=== PATIENT | female | born 1970 | race Two or more races ===

== ENCOUNTER 2024-11-05 07:29 | Inpatient (IN) | payer OTHER ==
[~2024-11-05] VITALS: Ht 162.6 cm; Wt 78.0 kg
[2024-11-05] MEDS ORDERED: TOPROL XL100 M1 PO (07:46)
[2024-11-05] MEDS ORDERED: CLOZAPINE100 MG PO (07:46)
[2024-11-05] MEDS ORDERED: PROTONIX40 MG PO (07:46)
[2024-11-05] MEDS ORDERED: CALCITRIOL0.5 MCG PO (07:47)
[2024-11-05] MEDS ORDERED: SYNTHROID137 MCG PO (07:47)
[2024-11-05] MEDS ORDERED: CALCIUM CITRAT250 MG PO (07:47)
[2024-11-05] MEDS ORDERED: 0.9 % SODIUM CHLORIDE 1,000 ML IV ONE (08:30)
[2024-11-05] MEDS ORDERED: PIPERACILLIN/TAZOBACTAM SODIUM 3.375 GM VIAL IV ONE ×2 (08:30→08:36)
[2024-11-05] MEDS ORDERED: MORPHINE SULFATE 2 MG/ML SYRINGE IV ONE (08:30)
[2024-11-05] MEDS ORDERED: PANTOPRAZOLE SODIUM 40 MG/VIAL VIAL IV ONE (08:30)
[2024-11-05 09:57] LABS: HEMATOCRIT 36.8 % (36.0-45.00); HEMOGLOBIN 12.9 g/dL (12.0-15.00); MEAN CELL VOLUME 85.1 fL (80.00-100.00); MEAN CORPUSCULAR HEMOGLOBIN 29.9 pg (27.00-32.0); MEAN CORPUSCULAR HGB CONC 35.1 g/dl (32.0-36.0); PLATELET COUNT 222 K/uL (150-450); RED BLOOD COUNT 4.32 M/uL (4.00-6.00); RED CELL DISTRIBUTION WIDTH 16.2 % (11.5-14.5)
[2024-11-05 10:15] LABS: INR 1.07; PARTIAL THROMBOPLASTIN TIME 20.6 SECONDS (22.0-34.0); PROTHROMBIN TIME 11.6 SECONDS (9.0-11.5)
[2024-11-05 10:20] LABS: ALBUMIN 3.8 gm/dL (3.4-5.0); BILIRUBIN TOTAL 0.67 mg/dL (0.3-1.2); CREATININE SERUM 2.22 mg/dL (0.55-1.02); GFR 23.11; GLOBULINA 5.2 G/DL (2.4-3.5); POTASSIUM 4.36 mEq/L (3.5-5.1)
[2024-11-05 10:30] LABS: CALCIUM 15.1 mg/dL (8.5-10.1)
[2024-11-05] MEDS ORDERED: 0.9 % SODIUM CHLORIDE 1,000 ML IV SCH (11:45)
[2024-11-05 12:56] LABS: PH,URINE 6.5 (5.0-8.0); URINE APPEARANCE Cloudy; URINE BILIRRUBIN Negative (NEGATIVE); URINE BLOOD Negative; URINE COLOR Yellow; URINE GLUCOSE Negative (NEGATIVE); URINE KETONE Trace (NEGATIVE); URINE LEUKOCYTE Moderate; URINE NITRATE Negative; URINE PROTEIN Trace (NEGATIVE); URINE UROBILINOGEN 0.2 E.U./dl
[2024-11-05 13:00] LABS: URINE BACTERIA 2081.9 uL (0.0-1933); URINE CAST 1.76 uL (0.0-1.40); URINE EPITHELIAL CELLS 55.8 uL (0.0-38.8); URINE RBC 8.5 uL (0.0-20.8); URINE WBC 130.9 uL (0.0-23.2)
[2024-11-05 14:44] LABS: ALBUMIN 3.4 gm/dL (3.4-5.0); BILIRUBIN TOTAL 0.5 mg/dL (0.3-1.2); CREATININE SERUM 2.23 mg/dL (0.55-1.02); GFR 22.99; GLOBULINA 4.2 G/DL (2.4-3.5); MAGNESIUM 2.1 mg/dL (1.8-2.4); PHOSPHOROUS 2.3 mg/dL (2.5-4.9); TOTAL PROTEIN 7.6 gm/dL (6.4-8.2)
[2024-11-05 14:46] VITALS: BP 150/90
[2024-11-05 14:50] LABS: CALCIUM 14.2 mg/dL (8.5-10.1); POTASSIUM 2.49 mEq/L (3.5-5.1)
[2024-11-05] MEDS ORDERED: POTASSIUM BICARBONATE/CIT AC 25 MEQ TABLET.EFF PO SCH (14:51)
[2024-11-05] MEDS ORDERED: POTASSIUM CHLORIDE IN WATER 40 MEQ/100 ML PIGGYBAG IV SCH (14:51)
[2024-11-05] MEDS ORDERED: POTASSIUM PHOS,M-BASIC-D-BASIC 15 MM in 0.9 % SODIUM CHLORIDE 250 ML IV NR (15:00)
[2024-11-05] MEDS ORDERED: CALCITONIN,SALMON,SYNTHETIC 400 UNIT/2ML VIAL IM SCH ×2 (15:15→17:00)
[2024-11-05] MEDS ORDERED: CEFTRIAXONE SODIUM 2,000 MG VIAL IV SCH (15:19)
[2024-11-05] MEDS ORDERED: METOPROLOL SUCCINATE 100 MG TAB.SR.24H PO SCH (15:20)
[2024-11-05] MEDS ORDERED: PANTOPRAZOLE SODIUM 40 MG TABLET.DR PO SCH (15:21)
[2024-11-05] MEDS ORDERED: POLYETHYLENE GLYCOL 3350 17 GM BLIST.PACK PO SCH (15:22)
[2024-11-05] MEDS ORDERED: ZOLEDRONIC ACID 4MG/5ML VIAL IV ONE (15:30)
[2024-11-05] MEDS ORDERED: POTASSIUM CHLORIDE IN WATER 40 MEQ/100 ML PIGGYBAG IV ONE (15:48)
[2024-11-05] MEDS ORDERED: CEFTRIAXONE SODIUM 2,000 MG VIAL ONE (15:49)
[2024-11-05] MEDS ORDERED: CLOZAPINE 100 MG PO SCH (17:00)
[2024-11-05 20:00] VITALS: BP 199/108; O2SAT 99
[2024-11-05] MEDS ORDERED: AMLODIPINE BESYLATE 5 MG TABLET PO ONE (21:00)
[2024-11-05] MEDS ORDERED: hydrALAZINE HCL 20 MG VIAL IV PRN (21:15)
[2024-11-05 22:00] VITALS: BP 156/96; O2SAT 99
[2024-11-05 22:07] LABS: ALBUMIN 3.4 gm/dL (3.4-5.0); BILIRUBIN TOTAL 0.35 mg/dL (0.3-1.2); CREATININE SERUM 2.03 mg/dL (0.55-1.02); GFR 25.62; GLOBULINA 4.2 G/DL (2.4-3.5); POTASSIUM 3.62 mEq/L (3.5-5.1); TOTAL PROTEIN 7.6 gm/dL (6.4-8.2)
[2024-11-05 22:21] LABS: CALCIUM 13.5 mg/dL (8.5-10.1)
[2024-11-06] VITALS (8 sets, daily range): BP systolic 123–190; BP diastolic 59–100; O2SAT 97–100
[2024-11-06 05:57] LABS: ALBUMIN 3.1 gm/dL (3.4-5.0); BILIRUBIN TOTAL 0.24 mg/dL (0.3-1.2); CALCIUM 12.3 mg/dL (8.5-10.1); CREATININE SERUM 1.84 mg/dL (0.55-1.02); GFR 28.69; GLOBULINA 3.9 G/DL (2.4-3.5); POTASSIUM 3.23 mEq/L (3.5-5.1)
[2024-11-06] MEDS ORDERED: LEVOTHYROXINE SODIUM 137 MCG TABLET PO SCH (06:00)
[2024-11-06] MEDS ORDERED: hydrALAZINE HCL 20 MG VIAL ONE (07:26)
[2024-11-06] MEDS ORDERED: ATORVASTATIN CALCIUM 20 MG TABLET PO SCH (09:00)
[2024-11-06] MEDS ORDERED: hydrALAZINE HCL 50 MG TABLET PO SCH (09:00)
[2024-11-06] MEDS ORDERED: CALCITONIN,SALMON,SYNTHETIC 400 UNIT/2ML VIAL IM SCH (09:00)
[2024-11-06] MEDS ORDERED: ENOXAPARIN SODIUM 30 MG/0.3 ML SYRINGE SUBCUTANEO SCH (09:00)
[2024-11-06] MEDS ORDERED: hydrALAZINE HCL 20 MG VIAL IV PRN (09:05)
[2024-11-06] MEDS ORDERED: SODIUM CHLORIDE 0.45 % 1,000 ML IV SCH (09:15)
[2024-11-06 11:33] LABS: BILIRUBIN TOTAL 0.29 mg/dL (0.3-1.2); CALCIUM 11.1 mg/dL (8.5-10.1); CREATININE SERUM 1.69 mg/dL (0.55-1.02); GFR 31.65; GLOBULINA 3.9 G/DL (2.4-3.5); POTASSIUM 3.28 mEq/L (3.5-5.1); TOTAL PROTEIN 6.9 gm/dL (6.4-8.2)
[2024-11-06] MEDS ORDERED: POTASSIUM CHLORIDE IN WATER 100 ML IV ONE (12:45)
[2024-11-06] MEDS ORDERED: POTASSIUM CHLORIDE IN WATER 40 MEQ/100 ML PIGGYBAG IV ONE (13:16)
[2024-11-06] MEDS ORDERED: ACETAMINOPHEN 500 MG GEL..CAP PO ONE (13:16)
[2024-11-06] MEDS ORDERED: ONDANSETRON HCL 2 MG/ML VIAL IV PRN (21:30)
[2024-11-06] MEDS ORDERED: NA PHOS,M-B/NA PHOS,DI-BA 1 BOTTLE ENEMA RECTAL ONE (21:30)
[2024-11-06] MEDS ORDERED: ACETAMINOPHEN 500 MG GEL..CAP PO PRN (22:45)
[2024-11-07 01:18] VITALS: BP 123/70; O2SAT 98
[2024-11-07 09:30] VITALS: BP 165/89
[2024-11-07 12:56] LABS: ALBUMIN 2.7 gm/dL (3.4-5.0); BILIRUBIN TOTAL 0.28 mg/dL (0.3-1.2); CALCIUM 9.6 mg/dL (8.5-10.1); CREATININE SERUM 2.02 mg/dL (0.55-1.02); GFR 25.76; GLOBULINA 3.4 G/DL (2.4-3.5); PHOSPHOROUS 2.4 mg/dL (2.5-4.9); POTASSIUM 3.31 mEq/L (3.5-5.1); TOTAL PROTEIN 6.1 gm/dL (6.4-8.2)
[2024-11-07] MEDS ORDERED: MAGNESIUM SULFATE IN WATER 50 ML IV NR (14:45)
[2024-11-07] MEDS ORDERED: POTASSIUM CHLORIDE IN WATER 100 ML IV NR (14:45)
[2024-11-07] MEDS ORDERED: POTASSIUM PHOS,M-BASIC-D-BASIC 15 MM in 0.9 % SODIUM CHLORIDE 250 ML IV NR (14:45)
[2024-11-07 14:48] LABS: HEMATOCRIT 28.7 % (36.0-45.00); MEAN CELL VOLUME 87.4 fL (80.00-100.00); MEAN CORPUSCULAR HGB CONC 32.7 g/dl (32.0-36.0); PLATELET COUNT 152 K/uL (150-450); RED BLOOD COUNT 3.29 M/uL (4.00-6.00)
[2024-11-07 14:56] LABS: HEMOGLOBIN 9.4 g/dL (12.0-15.00); MEAN CORPUSCULAR HEMOGLOBIN 28.5 pg (27.00-32.0)
[2024-11-07 16:26] VITALS: BP 122/63
[2024-11-08] VITALS: BP 132/67
[2024-11-08 08:00] VITALS: BP 115/59
[2024-11-08 11:28] LABS: HEMATOCRIT 25.3 % (36.0-45.00); HEMOGLOBIN 8.9 g/dL (12.0-15.00); MEAN CELL VOLUME 84.5 fL (80.00-100.00); MEAN CORPUSCULAR HEMOGLOBIN 29.7 pg (27.00-32.0); MEAN CORPUSCULAR HGB CONC 35.3 g/dl (32.0-36.0); RED BLOOD COUNT 2.99 M/uL (4.00-6.00); RED CELL DISTRIBUTION WIDTH 16.7 % (11.5-14.5)
[2024-11-08 11:29] LABS: PLATELET COUNT 135 K/uL (150-450)
[2024-11-08 11:42] LABS: ALBUMIN 2.4 gm/dL (3.4-5.0); BILIRUBIN TOTAL 0.3 mg/dL (0.3-1.2); CALCIUM 8.5 mg/dL (8.5-10.1); CREATININE SERUM 1.95 mg/dL (0.55-1.02); GFR 26.84; GLOBULINA 2.9 G/DL (2.4-3.5); MAGNESIUM 1.6 mg/dL (1.8-2.4); PHOSPHOROUS 3.3 mg/dL (2.5-4.9); POTASSIUM 3.13 mEq/L (3.5-5.1); TOTAL PROTEIN 5.3 gm/dL (6.4-8.2)
[2024-11-08] MEDS ORDERED: MAGNESIUM SULFATE IN WATER 4 GM/100 ML PIGGYBACK IV STA (15:32)
[2024-11-08 16:05] LABS: kappa light 68.8 mg/L (3.3-19.4); lambda light 36.2 mg/L (5.7-26.3)
[2024-11-08 16:30] VITALS: BP 131/59
[2024-11-08] MEDS ORDERED: POTASSIUM CHLORIDE IN WATER 40 MEQ/100 ML PIGGYBAG IV SCH (17:00)
[2024-11-09 02:28] VITALS: BP 127/59
[2024-11-09 05:19] LABS: HEMATOCRIT 24.3 % (36.0-45.00); RED CELL DISTRIBUTION WIDTH 16.9 % (11.5-14.5)
[2024-11-09 05:31] LABS: MEAN CORPUSCULAR HEMOGLOBIN 28.5 pg (27.00-32.0)
[2024-11-09 05:32] LABS: PLATELET COUNT 147 K/uL (150-450)
[2024-11-09 05:34] LABS: ALBUMIN 2.3 gm/dL (3.4-5.0); BILIRUBIN TOTAL 0.2 mg/dL (0.3-1.2); CALCIUM 7.7 mg/dL (8.5-10.1); CREATININE SERUM 1.68 mg/dL (0.55-1.02); GFR 31.87; GLOBULINA 2.9 G/DL (2.4-3.5); MAGNESIUM 2.6 mg/dL (1.8-2.4); POTASSIUM 4.1 mEq/L (3.5-5.1); TOTAL PROTEIN 5.2 gm/dL (6.4-8.2)
[2024-11-09] MEDS ORDERED: LEVOTHYROXINE SODIUM 125 MCG TABLET PO SCH (06:00)
[2024-11-09] MEDS ORDERED: LEVOTHYROXINE SODIUM 137 MCG TABLET PO SCH (06:00)
[2024-11-09 07:56] LABS: PHOSPHOROUS 1.5 mg/dL (2.5-4.9)
[2024-11-09] MEDS ORDERED: POTASSIUM PHOS,M-BASIC-D-BASIC 3 MM/ML VIAL IV ONE (09:00)
[2024-11-09] MEDS ORDERED: IRON FUM,PS/FOLIC/BCOMP,C NO.9 1 CAP CAPSULE PO SCH (09:00)
[2024-11-09 09:28] VITALS: BP 115/65
[2024-11-09] MEDS ORDERED: CYANOCOBALAMIN (VITAMIN B-12) 1,000 MCG TABLET PO SCH (10:27)
[2024-11-09 14:04] LABS: a:g ratio 1.1 (0.7-1.7); alpha 1 g 0.2 g/dL (0.0-0.4); alpha 2 0.6 g/dL (0.4-1.0); beta g 1.1 g/dL (0.7-1.3); gamma g 1.2 g/dL (0.4-1.8); globulin t 3.1 g/dL (2.2-3.9); prot total 6.4 g/dL (6.0-8.5)
[2024-11-09] MEDS ORDERED: TRAMADOL HCL 50 MG TABLET PO ONE (14:30)
[2024-11-09] MEDS ORDERED: NA PHOS,M-B/NA PHOS,DI-BA 1 BOTTLE ENEMA RECTAL NR (15:00)
[2024-11-09] MEDS ORDERED: FUROsemide 20 MG/2 ML VIAL IV PRN (16:45)
[2024-11-09] MEDS ORDERED: NAPH,MB-DB/K PH,MBDB 1 PKT PACKET PO SCH (16:46)
[2024-11-09 19:33] VITALS: BP 117/71; O2SAT 97
[2024-11-10 01:05] LABS: HEMATOCRIT 31.1 % (36.0-45.00); HEMOGLOBIN 10.4 g/dL (12.0-15.00); MEAN CELL VOLUME 88.5 fL (80.00-100.00); MEAN CORPUSCULAR HEMOGLOBIN 29.6 pg (27.00-32.0); MEAN CORPUSCULAR HGB CONC 33.4 g/dl (32.0-36.0); PLATELET COUNT 179 K/uL (150-450); RED BLOOD COUNT 3.51 M/uL (4.00-6.00); RED CELL DISTRIBUTION WIDTH 16.6 % (11.5-14.5)
[2024-11-10 01:19] LABS: ALBUMIN 2.5 gm/dL (3.4-5.0); BILIRUBIN TOTAL 0.21 mg/dL (0.3-1.2); CALCIUM 7.2 mg/dL (8.5-10.1); CREATININE SERUM 1.25 mg/dL (0.55-1.02); GFR 44.83; GLOBULINA 3.4 G/DL (2.4-3.5); POTASSIUM 3.56 mEq/L (3.5-5.1); TOTAL PROTEIN 5.9 gm/dL (6.4-8.2)
[2024-11-10 01:24] LABS: ob POSITIVE (NEGATIVE)
[2024-11-10 01:41] VITALS: BP 136/81; O2SAT 96
[2024-11-10 09:24] VITALS: BP 151/91; O2SAT 98
[2024-11-10] MEDS ORDERED: DEXTROSE 5 %-0.45 % SOD CHLORD 1,000 ML IV SCH (15:45)
[2024-11-10] MEDS ORDERED: AMINO ACIDS 4.25 %/DEXTROSE 5% 1,000 ML PERIFERAL SCH (17:00)
[2024-11-10 18:46] VITALS: BP 134/79; O2SAT 97
[2024-11-10 19:24] LABS: CHOL HDL RATIO 2.8 (0-5.0)
[2024-11-10] MEDS ORDERED: PANTOPRAZOLE SODIUM 40 MG/VIAL VIAL IV SCH (21:00)
[2024-11-11 01:27] VITALS: BP 129/79
[2024-11-11 06:49] LABS: HEMOGLOBIN 10.7 g/dL (12.0-15.00); MEAN CELL VOLUME 87.8 fL (80.00-100.00); MEAN CORPUSCULAR HEMOGLOBIN 29.3 pg (27.00-32.0); MEAN CORPUSCULAR HGB CONC 33.4 g/dl (32.0-36.0); PLATELET COUNT 194 K/uL (150-450); RED BLOOD COUNT 3.65 M/uL (4.00-6.00)
[2024-11-11 07:26] LABS: ALBUMIN 2.5 gm/dL (3.4-5.0); BILIRUBIN TOTAL 0.24 mg/dL (0.3-1.2); CALCIUM 6.9 mg/dL (8.5-10.1); CREATININE SERUM 1.01 mg/dL (0.55-1.02); GFR 57.34; GLOBULINA 3.4 G/DL (2.4-3.5); MAGNESIUM 1.7 mg/dL (1.8-2.4); POTASSIUM 3.27 mEq/L (3.5-5.1); TOTAL PROTEIN 5.9 gm/dL (6.4-8.2)
[2024-11-11 08:22] VITALS: BP 177/80
[2024-11-11 08:28] LABS: PHOSPHOROUS 1.5 mg/dL (2.5-4.9)
[2024-11-11] MEDS ORDERED: POTASSIUM CHLORIDE 20MEQ/100ML H2O PB IV NR (10:00)
[2024-11-11] MEDS ORDERED: MAGNESIUM SULFATE IN WATER 50 ML IV NR (12:00)
[2024-11-11] MEDS ORDERED: CALCIUM CARBONATE/VITAMIN D3 1 TAB TABLET PO NR (12:00)
[2024-11-11] MEDS ORDERED: CALCITRIOL 0.5 MCG CAPSULE PO NR (12:00)
[2024-11-11] MEDS ORDERED: POLYETHYLENE GLYCOL 3350 17 GM BLIST.PACK PO NR (14:30)
[2024-11-11] MEDS ORDERED: AMLODIPINE BESYLATE 2.5 MG TABLET PO NR (14:30)
[2024-11-11] MEDS ORDERED: POTASSIUM PHOS,M-BASIC-D-BASIC 3 MM/ML VIAL IV ONE (16:00)
[2024-11-11] MEDS ORDERED: CALCIUM CARBONATE/VITAMIN D3 1 TAB TABLET PO SCH (17:00)
[2024-11-11] MEDS ORDERED: DOCUSATE SODIUM 100MG CAP PO SCH (17:00)
[2024-11-11] MEDS ORDERED: AA 2.36%/D6.8W/FAT/E-LYTES NO9 1,440 ML IV SCH (17:00)
[2024-11-11 18:39] VITALS: BP 125/74; O2SAT 98
[2024-11-12 02:08] VITALS: BP 128/71
[2024-11-12 08:15] LABS: HEMATOCRIT 29.4 % (36.0-45.00); HEMOGLOBIN 9.8 g/dL (12.0-15.00); MEAN CELL VOLUME 87.6 fL (80.00-100.00); MEAN CORPUSCULAR HEMOGLOBIN 29.2 pg (27.00-32.0); MEAN CORPUSCULAR HGB CONC 33.4 g/dl (32.0-36.0); PLATELET COUNT 203 K/uL (150-450); RED BLOOD COUNT 3.35 M/uL (4.00-6.00); RED CELL DISTRIBUTION WIDTH 16.6 % (11.5-14.5)
[2024-11-12 08:16] VITALS: BP 144/83
[2024-11-12 08:26] LABS: ALBUMIN 2.4 gm/dL (3.4-5.0); BILIRUBIN TOTAL 0.3 mg/dL (0.3-1.2); CALCIUM 6.9 mg/dL (8.5-10.1); CREATININE SERUM 0.96 mg/dL (0.55-1.02); GFR 60.8; GLOBULINA 3.5 G/DL (2.4-3.5); PHOSPHOROUS 2.5 mg/dL (2.5-4.9); POTASSIUM 3.35 mEq/L (3.5-5.1); TOTAL PROTEIN 5.9 gm/dL (6.4-8.2)
[2024-11-12] MEDS ORDERED: CALCITRIOL 0.5 MCG CAPSULE PO SCH (09:00)
[2024-11-12] MEDS ORDERED: POLYETHYLENE GLYCOL 3350 17 GM BLIST.PACK PO SCH (09:00)
[2024-11-12] MEDS ORDERED: POTASSIUM BICARBONATE/CIT AC 25 MEQ TABLET.EFF PO NR (14:00)
[2024-11-12] MEDS ORDERED: INTEGRA PLUS C1 EACH PO (14:08)
[2024-11-12] MEDS ORDERED: CALCIUM 500-VI1 EAC6 PO (14:08)
[2024-11-12] MEDS ORDERED: PANTOPRAZOLE SO40 MG PO (14:09)
[2024-11-12] MEDS ORDERED: CALCITRIOL0.5 MCG PO (14:11)
[2024-11-12 17:36] VITALS: BP 143/79; O2SAT 97
== END 2024-11-12 18:02 | disposition home or self-care (01) | DRG 641 ==
LOC: ER 07:32 → MEDJ 15:38 → ICU-2 15:38 → MEDJ 11-06 13:08
PROVIDERS: General Practice; Internal Medicine Nephrology; ADMIT Internal Medicine; ATTEND Internal Medicine
PROC: BW21ZZZ Computerized Tomography (CT Scan) of Abdomen and Pelvis (ICD-10-PCS; principal; 2024-11-05)
PROC: BB24ZZZ Computerized Tomography (CT Scan) of Bilateral Lungs (ICD-10-PCS; 2024-11-05)
PROC: BW40ZZZ Ultrasonography of Abdomen (ICD-10-PCS; 2024-11-06)
PROC: 02HV33Z Insertion of Infusion Device into Superior Vena Cava, Percutaneous Approach (ICD-10-PCS; 2024-11-07)
PROC: B54MZZZ Ultrasonography of Right Upper Extremity Veins (ICD-10-PCS; 2024-11-09)
PROC: 30233N1 Transfusion of Nonautologous Red Blood Cells into Peripheral Vein, Percutaneous Approach (ICD-10-PCS; 2024-11-09)
PROC: CD271ZZ Tomographic (Tomo) Nuclear Medicine Imaging of Gastrointestinal Tract using Technetium 99m (Tc-99m) (ICD-10-PCS; 2024-11-10)
DX: E83.52 Hypercalcemia (principal); N39.0 Urinary tract infection, site not specified; N17.8 Other acute kidney failure; F20.89 Other schizophrenia; E87.6 Hypokalemia; K59.09 Other constipation; E78.5 Hyperlipidemia, unspecified; E86.0 Dehydration; E03.8 Other specified hypothyroidism; D69.6 Thrombocytopenia, unspecified; D64.9 Anemia, unspecified; I12.9 Hypertensive chronic kidney disease with stage 1 through stage 4 chronic kidney disease, or unspecified chronic kidney disease; N18.9 Chronic kidney disease, unspecified; Z85.850 Personal history of malignant neoplasm of thyroid